=== PATIENT | male | born 1985 | race African-American/Black ===

== ENCOUNTER 2018-12-23 00:53 | Emergency (ER) | payer BC ==
--- NOTE | 2018-12-23 02:09 | EDM.PDOC ---
ED HPI GENERAL MEDICAL PROBLEM - General Chief Complaint: ENT Problem Stated Complaint: BLEEDING FROM FACE Time Seen by Provider: 12/23/18 01:09 Source of Information: Reports: Patient History Limitations: Reports: No Limitations - History of Present Illness INITIAL COMMENTS - FREE TEXT/NARRATIVE: The patient presents by [employer] for a facial injury. The police found the patient on the street near by and he was bleeding from his much. The patient says he fell [place] an apartment [place]. He had no LOC. He says his head hurts along with his neck and the left side of his jaw. He has no chest pain, abdominal pain, nausea or vomiting. He has no numbness or weakness. Onset: Sudden Duration: Minutes: Location: Reports: Face Quality: Reports: Sharp Severity: Moderate Improves with: Reports: Immobilization Worsens with: Reports: Movement Context: Reports: Trauma (Fell on some rocks) Associated Symptoms: Reports: No Other Symptoms Tooth/Teeth Pain Score (Numeric/FACES): 9 - Related Data Allergies Allergy/AdvReac Type Severity Reaction Status Date / Time No Known Allergies Allergy Verified 12/23/18 01:07 Home Meds: Home Meds Cephalexin [Keflex] 500 mg PO QID #40 capsule 12/23/18 [Rx] Hydrocodone/Acetaminophen [Hydrocodon-Acetaminophen 5-325] 1 - 2 each PO Q6HR PRN #20 tablet 12/23/18 [Rx] Past Medical History - Past Health History Medical/Surgical History: Denies Medical/Surgical History Social & Family History - Family History Family Medical History: Noncontributory - Tobacco Use Smoking Status *Q: Current Every Day Smoker Years of Tobacco use: 10 Packs/Tins Daily: 0.5 - Caffeine Use Caffeine Use: Reports: Tea ED ROS ENT - Review of Systems Review Of Systems: See Below Constitutional: Reports: No Symptoms HEENT: Reports: Other (Left jaw pain and pain to the right side of his face) Respiratory: Reports: No Symptoms Cardiovascular: Reports: No Symptoms Endocrine: Reports: No Symptoms GI/Abdominal: Reports: No Symptoms : Reports: No Symptoms Musculoskeletal: Reports: No Symptoms Skin: Reports: No Symptoms ED EXAM, ENT - Physical Exam Exam: See Below Exam Limited By: No Limitations General Appearance: Alert, No Apparent Distress Ears: Normal External Exam Nose: Normal Inspection Mouth/Throat: Other (Pain to the left mandible. Fractured upper incisors with some bleeding from the right medial one.) Head: Other (abrasions to the right forehead and right maxillary area) Neck: Tender Midline Respiratory/Chest: No Respiratory Distress, Lungs Clear, Normal Breath Sounds Cardiovascular: Regular Rate, Rhythm, No Edema, No Murmur GI/Abdominal: Soft, Non-Tender, No Organomegaly, No Mass Back: Normal Inspection Extremities: Normal Inspection Course - Vital Signs Last Recorded V/S: Last Vital Signs Temp 97.6 F 12/23/18 01:03 Pulse 65 12/23/18 01:03 Resp 14 12/23/18 01:03 BP 108/46 L 12/23/18 01:03 Pulse Ox 99 12/23/18 01:03 - Orders/Labs/Meds Orders: Active Orders 24 hr Category Date Time Status Cervical Spine wo Cont [CT] Stat Exams 12/23/18 01:15 Taken Head wo Cont [CT] Stat Exams 12/23/18 01:15 Taken Maxillofacial w/o CM [Max Facial Sinus wo Cont] [CT] Exams 12/23/18 01:16 Taken Stat HYDROmorphone [Dilaudid] Med 12/23/18 02:15 Once 1 mg IM ONETIME ONE - Re-Assessments/Exams Free Text/Narrative Re-Assessment/Exam: 12/23/18 02:[address] of his head, cervical spine, and facial bones. 12/23/18 02:[address] of his head and cervical spine are negative. The CT of his maxillofacial bones shows right maxillary sinus fracture. Maxilla fracture. Fractures of the anterior aspect of the mandible and posterior body and angle left side of the mandible. I ordered a shot of dilaudid and I will get him on some keflex and something for pain and have him follow up with Dr Brian or another maxillofacial surgeon in [place]. Departure - Departure Time of Disposition: 02:30 Disposition: Home, Self-Care 01 Condition: Good Clinical Impression: Fall Qualifiers: Encounter type: initial encounter Qualified Code(s): W19.XXXA - Unspecified fall, initial encounter Facial abrasion Qualifiers: Encounter type: initial encounter Qualified Code(s): S00.81XA - Abrasion of other part of head, initial encounter Maxillary fracture, right side, initial encounter for closed fracture Qualifiers: Encounter type: initial encounter Qualified Code(s): S02.40CA - Maxillary fracture, right side, initial encounter for closed fracture Mandible open fracture Qualifiers: Encounter type: initial encounter Mandible location: angle Laterality: left Qualified Code(s): S02.652B - Fracture of angle of left mandible, initial encounter for open fracture - Discharge Information *PRESCRIPTION DRUG MONITORING PROGRAM REVIEWED*: No *COPY OF PRESCRIPTION DRUG MONITORING REPORT IN PATIENT AGUILA: No Prescriptions: Hydrocodone/Acetaminophen [Hydrocodon-Acetaminophen 5-325] 1 - 2 each PO Q6HR PRN #20 tablet PRN Reason: Pain Cephalexin [Keflex] 500 mg PO QID #40 capsule Referrals: PCP,None [Primary Care Provider] - Emerson Brian MD [Ordering Only Provider] - 1 Week Forms: ED Department Discharge Additional Instructions: Ice the areas that hurt for 15 minutes 3 times per day. Liquid diet until you see the surgeon. Take tylenol for pain. If that does not help, try the hydrocodone. Take the keflex 4 times per day to avoid infection. Follow up with Dr Brian within a week. Try calling his office tomorrow. Please return if you are worse. - My Orders Last 24 Hours: My Active Orders 12/23/18 01:15 Cervical Spine wo Cont [CT] Stat Head wo Cont [CT] Stat 12/23/18 01:16 Maxillofacial w/o CM [Max Facial Sinus wo Cont] [CT] Stat 12/23/18 02:15 HYDROmorphone [Dilaudid] 1 mg IM ONETIME ONE - Assessment/Plan Last 24 Hours: My Active Orders 12/23/18 01:15 Cervical Spine wo Cont [CT] Stat Head wo Cont [CT] Stat 12/23/18 01:16 Maxillofacial w/o CM [Max Facial Sinus wo Cont] [CT] Stat 12/23/18 02:15 HYDROmorphone [Dilaudid] 1 mg IM ONETIME ONE
[2018-12-23] MEDS: HYDROmorphone 1 MG/ML Syringe IM ONE ×2 (02:22→02:48)
[2018-12-23] MEDS ORDERED: Acetaminophen/HYDROcodone 325-5 MG Tab PO ONE (02:40)
--- NOTE | 2018-12-23 07:50 | CT ---
CT cervical spine Technique: Multiple axial sections through the cervical spine were obtained. Study was obtained from above C1 inferiorly to the top of T2. Reconstructed sagittal and coronal images were reviewed. Findings: Disc space narrowing is noted at C2-C3 which appears to be developmental. Degenerative disc space narrowing is noted at C3-C4, C4-C5, anteriorly at C5-C6 and diffusely at C6-C7. Cervical spine shows kyphosis on the reconstructed lateral views. Diffuse mild spurring is noted within the uncovertebral joints throughout the cervical spine. No fracture is identified. Mild right sided neural foraminal stenosis is noted at C3-C4. Mild bilateral neural foraminal stenosis noted at C4-C5. Impression: 1. Mild diffuse degenerative change. 2. Nothing acute is appreciated on CT study of the cervical spine. Diagnostic code #2 I agree with preliminary report from [facility], finalized on 12/23/18, 2:58 AM Central Time
--- NOTE | 2018-12-23 07:50 | CT ---
Head CT Technique: Multiple axial sections through the brain were obtained. Intravenous contrast was not utilized. Comparison: No prior intracranial imaging is available. Findings: Ventricles along with basal cisterns and sulci over the convexities are within normal limits for the patient's age. No abnormal parenchymal densities are seen. No evidence of intracranial hemorrhage. No midline shift or mass effect is seen. Bone window settings were reviewed which show no acute calvarial abnormality. Soft tissue air is seen outside the right maxillary sinus. Soft tissue density is noted within the right maxillary sinus. No acute calvarial abnormality is appreciated. Impression: 1. Findings within and around the right maxillary sinus which will be discussed on subsequent CT facial bone exam. 2. No acute intracranial abnormality is appreciated. Diagnostic code #2 I agree with preliminary report from [facility], finalized on 12/23/18, 2:57 AM Central Time
--- NOTE | 2018-12-23 08:28 | CT ---
CT facial bones Technique: Multiple axial sections through the facial bones were obtained inferiorly from the mandible through the frontal sinuses. Reconstructed coronal and sagittal images were reviewed. Findings: Nondisplaced fracture identified within the posterolateral wall of the right maxillary sinus. Soft tissue air noted in this area outside the sinus. 2nd fracture is seen inferiorly within the right maxillary sinus which extends into the maxilla along the anterior right side and extends into a tooth socket. Additional maxillary fracture is seen anteriorly involving a right incisor tooth socket extending from the base of the nasal cavity. No left-sided fracture seen around the maxillary sinus. Right and left globes are symmetric. Orbital mccall appear intact. Left sided mandibular fracture is identified at the angle of the mandible which appears slightly comminuted and involves the socket of the posterior molar. Slight displacement of this tooth socket is seen. Additional fracture is noted anteriorly within the mandible on the right side which also extends into the tooth socket of what appears to be a lateral incisor. No additional fracture is appreciated. Soft tissue density and fluid is seen within the right maxillary sinus most likely representing hematoma and blood. Nasal bone appears intact. Impression: 1. Fractures involving the right posterolateral maxillary sinus wall and within the maxilla in several places anteriorly which extends into tooth sockets. 2. Mandibular fractures as noted above. Diagnostic code #3 I agree with preliminary report from [facility], finalized on 12/23/18, 3:05 AM Central Time
== END 2018-12-23 02:50 | disposition home or self-care (01) ==
LOC: JD.ED 00:53
DX: S02.652B Fracture of angle of left mandible, initial encounter for open fracture (principal); S02.40CA Maxillary fracture, right side, initial encounter for closed fracture; F17.210 Nicotine dependence, cigarettes, uncomplicated; W19.XXXA Unspecified fall, initial encounter
CPT/HCPCS: 70450; 70486; 72125; 99284; A9270; J1170

== ENCOUNTER 2018-12-28 19:33 | Emergency (ER) | payer BC ==
[2018-12-28] MEDS ORDERED: Acetaminophen/oxyCODONE 325-5 MG Tab PO STA (20:24)
--- NOTE | 2018-12-28 20:30 | EDM.PDOC ---
ED HPI GENERAL MEDICAL PROBLEM - General Chief Complaint: ENT Problem Stated Complaint: JAW PAIN MED REFIL Time Seen by Provider: 12/28/18 19:58 Source of Information: Reports: Patient, Old Records (ED visit 12/23/2018), Significant Other (Girlfriend + child) History Limitations: Reports: No Limitations - History of Present Illness INITIAL COMMENTS - FREE TEXT/NARRATIVE: Mr. Laughlin is a 33-year-old man with no significant past medical history, who, according to medical records, fell onto some rocks on his face on 12/23/2018. Workup in the ED included a CT scan of his head, facial bones, and cervical spine. CT scan of his head and cervical spine were negative, however, the CT of his facial bones found a nondisplaced fracture within the posterolateral wall of the right maxillary sinus, a second fracture inferiorly within the right maxillary sinus which extended into the maxilla along the anterior right side extending into to socket, and an additional maxillary fracture seen anteriorly involving a right incisor tooth socket extending from the base of the nasal cavity. In addition, a left-sided mandibular fracture was identified at the angle of the mandible, which was slightly comminuted and involves the socket of the posterior molar. Slight displacement of the tooth socket was seen. An additional fracture was noted anteriorly within the mandible on the right side which extended into the tooth socket what appeared to be a lateral incisor. The patient was prescribed Keflex and 20 tablets of Burnett, and referred to a maxillofacial surgeon. The patient states that he underwent same-day reparative surgery per a Plastic Surgeon at [facility] on 12/25/2018. The patient states that the surgeon prescribed 42 tablets of Percocet, but that for some insurance reason, the pharmacy only dispensed 21 tablets, with the intention of mailing the remaining 21 tablets to the patient within the next couple of days. In the meantime, however, the patient states that he has run out of the 21 tablets of Percocet, and that he was instructed by his Plastic Surgeon to not take the previously prescribed Burnett. He now presents to the ED requesting a refill prescription for Percocet. The patient does not have a PCP. His Plastic Surgeon is Dr. Shaq Wong. Left Jaw Pain Score (Numeric/FACES): 10 - Related Data Allergies Allergy/AdvReac Type Severity Reaction Status Date / Time No Known Allergies Allergy Verified 12/28/18 19:44 Home Meds: Home Meds Cephalexin [Keflex] 500 mg PO QID #40 capsule 12/23/18 [Rx] Hydrocodone/Acetaminophen [Hydrocodon-Acetaminophen 5-325] 1 - 2 each PO Q6HR PRN #20 tablet 12/23/18 [Rx] oxyCODONE HCl/Acetaminophen [Percocet 10-325 mg Tablet] 1 tab PO Q4HR 12/28/18 [ History] Past Medical History Musculoskeletal History: Reports: Fracture (several maxilla + mandible, 12/23/18) - Infectious Disease History Infectious Disease History: Reports: Chicken Pox - Past Surgical History HEENT Surgical History: Reports: Other (See Below) (Maxillary + madible fx repairs 12/25/2018) Musculoskeletal Surgical History: Reports: Other (See Below) Other Musculoskeletal Surgeries/Procedures:: L elbow surgery Social & Family History - Family History Family Medical History: Noncontributory - Tobacco Use Tobacco Use Within Last Twelve Months: Cigars (5/day x 2013) - Caffeine Use Caffeine Use: Reports: Soda, Tea - Alcohol Use Alcohol Use History: Yes Alcohol Use Frequency: Socially - Recreational Drug Use Recreational Drug Use: No - Living Situation & Occupation Living situation: Reports: Single, with Significant Other (Girlfriend), with Family (1 child) Occupation: Employed (Road construction) ED ROS GENERAL - Review of Systems Review Of Systems: ROS reveals no pertinent complaints other than HPI. ED EXAM, GENERAL - Physical Exam Exam: See Below Exam Limited By: No Limitations General Appearance: Alert, WD/WN, No Apparent Distress Eye Exam: Bilateral Eye: EOMI, Normal Inspection Ears: Normal External Exam, Hearing Grossly Normal Nose: Normal Inspection Throat/Mouth: Normal Inspection, Normal Lips, Normal Voice, No Airway Compromise Head: Atraumatic, Normocephalic Neck: Normal Inspection, Other (Monitoring collar around neck) Respiratory/Chest: No Respiratory Distress, Lungs Clear, Normal Breath Sounds, No Accessory Muscle Use Cardiovascular: Normal Peripheral Pulses, Regular Rate, Rhythm, No Edema, No Gallop, No JVD, No Murmur, No Rub Peripheral Pulses: 4+: Radial (L), Radial (R) GI/Abdominal: Normal Bowel Sounds, Soft, Non-Tender, No Organomegaly, No Distention, No Abnormal Bruit, No Mass (Male) Exam: Deferred Rectal (Males) Exam: Deferred Back Exam: Normal Inspection, Full Range of Motion, NT Extremities: Normal Inspection, Normal Range of Motion, No Pedal Edema, Normal Capillary Refill Neurological: Alert, Oriented, Normal Cognition, No Motor/Sensory Deficits Psychiatric: Normal Affect Skin Exam: Warm, Dry, Intact, Normal Color, No Rash Course - Vital Signs Last Recorded V/S: Last Vital Signs Temp 36.9 C 12/28/18 19:39 Pulse 65 12/28/18 19:39 Resp 18 12/28/18 19:39 BP 149/76 H 12/28/18 19:39 Pulse Ox 100 12/28/18 19:39 - Orders/Labs/Meds Orders: Active Orders 24 hr Category Date Time Status Acetaminophen/oxyCODONE [Percocet 325-5 MG] Med 12/28/18 20:24 Stat 2 tab PO ONETIME STA Medication Orders Oxycodone/Acetaminophen (Percocet 325-5 Mg) 2 tab PO ONETIME STA Stop: 12/28/18 20:25 Meds: Medications Generic Name Dose Route Start Last Admin Trade Name Freq PRN Reason Stop Dose Admin Oxycodone/Acetaminophen 2 tab 12/28/18 20:24 Percocet 325-5 Mg PO 12/28/18 20:25 ONETIME STA - Re-Assessments/Exams Free Text/Narrative Re-Assessment/Exam: 12/28/18 20:26 The patient is requesting another prescription for Percocet, even though he has a prescription for 21 tablets at a pharmacy in [place]. As per the HPI, the patient states that the pharmacy only dispensed half of his prescription on Friday, and that they will apparently mail the remaining 21 tablets in the next couple of days. I checked the [place] PMPi, which indicates that the patient filled a prescription for 21 tablets of Percocet 10/325, written by Dr. Wong, on . The [place] PMP[place] does not indicate how many pills the original prescription was written for, however, it does indicate that the 21 tablets were intended for 7 days, therefore the patient should have enough to last him through 2018. The patient states that he was instructed by Dr. oWng to not take the previously prescribed Burnett, however, I explained to the patient that what Dr. Wong meant was that he cannot take both the Burnett and Percocet at the same time - that it is one or the other, and that Percocet is a bit stronger than Burnett, but since he is out of Percocet, there is no reason he cannot take Burnett. Despite the limitation by his insurance, the patient stated that if I wrote him a new prescription for Percocet, he would somehow be able to fill it, however, I explained that emergency departments do not refill medications of any type, including opioids. If the patient needs a new prescription for Percocet, he will need to get that from Dr. Wong. For tonight's purposes, I have ordered 2 tablets of Percocet, then the patient can resume taking the remaining Burnett that he has at home in 4-6 hours. He should then contact the office of Dr. Wong in the morning to straighten out his Percocet prescription. Departure - Departure Time of Disposition: 20:30 Disposition: Home, Self-Care 01 Condition: Good Clinical Impression: Inadequate pain control - Discharge Information *PRESCRIPTION DRUG MONITORING PROGRAM REVIEWED*: Not Applicable *COPY OF PRESCRIPTION DRUG MONITORING REPORT IN PATIENT AGUILA: Not Applicable Referrals: Shaq Wong MD [Ordering Only Provider] - Additional Instructions: You were seen in the emergency room, requesting additional Percocet after the quantity that you had filled ran out. As explained, emergency departments do not refill medications, including pain medications. You were given 2 tablets of Percocet in the emergency department. Going forward , you should continue to take the Burnett that was prescribed from the emergency department on 12/23/2018. We also recommend that you take [id number] ibuprofen, 3-4 tablets (600- 800 mg) every 8 hours, with food, around the clock. For an additional prescription of Percocet, you will need to contact your Plastic Surgeon, Dr. Shaq Almanzar. If any other problems, please do not hesitate to return to the ER. - My Orders Last 24 Hours: My Active Orders 12/28/18 20:24 Acetaminophen/oxyCODONE [Percocet 325-5 MG] 2 tab PO ONETIME STA - Assessment/Plan Last 24 Hours: My Active Orders 12/28/18 20:24 Acetaminophen/oxyCODONE [Percocet 325-5 MG] 2 tab PO ONETIME STA
== END 2018-12-28 20:38 | disposition home or self-care (01) ==
LOC: JD.ED 19:33
DX: R68.84 Jaw pain (principal)
CPT/HCPCS: 99281; A9270; 99283